=== PATIENT | female | born 2000 | race Caucasian/White ===

== ENCOUNTER → 2024-06-15 | Outpatient (CLI) | payer OTHER ==
[~2024-06-15] MED LIST: ADDERALL20 MG PO; AMOXICILLIN 8751 TAB PO; FERROUS SU325 MG/TAB PO; Iohexol 300 - 100 ML VIAL IV ONE; NS 100 ML IV SCH; ROXICODONE 55 MG/TAB PO; TYLENOL 500MG500 MG PO; WELLBUTRIN XL300 M1 PO
== END ==
LOC: COL.RAD 14:09
DX: K92.1 Melena (principal)
CPT/HCPCS: Q9967